=== PATIENT | male | born 1980 | race Caucasian/White ===

== ENCOUNTER 2018-05-07 10:08 | Day surgery (SDC) | payer BC ==
--- NOTE | 2018-05-07 10:16 | Emergency Department Record ---
History of Present Illness - General Chief Complaint: Abdominal Pain Stated Complaint: RIGHT UPPER ABD PAIN Time Seen by Provider: 05/07/18 10:15 Source: Patient Mode of Arrival: Ambulatory Limitations: No limitations - History of Present Illness Initial Comments: The patient is here due to developing RUQ AP about 6 hours ago while in bed sleeping. It is a constant aching pain associated with nausea but no vomiting. He denies any lower AP, back pain, fever, or dysuria. The patient states he does have a hx of a bile duct stent placed 8 years ago in [place]. Complaint: Abdominal pain Onset/Timin -: Hour(s) Location: RUQ Radiation: None Migration to: No migration Severity: Moderate Severity scale (1-10): 7 Quality: Aching Consistency: Constant Improves With: Nothing Worsens With: Nothing Associated Symptoms: Nausea - Related Data Allergies Allergy/AdvReac Type Severity Reaction Status Date / Time No Known Drug Allergies Allergy Verified 05/07/18 10:16 Travel Screening - Travel/Exposure Within Last 30 Days Have you traveled within the last 30 days?: No Review of Systems Constitutional: Denies: Chills, Fever Eyes: Denies: Eye discharge ENT: Denies: Congestion Respiratory: Denies: Cough, Dyspnea Cardiovascular: Denies: Arrhythmia, Chest pain Endocrine: Denies: Fatigue Gastrointestinal: Reports: Abdominal pain, Nausea. Denies: Diarrhea, Vomiting Genitourinary: Denies: Dysuria Musculoskeletal: Denies: Arthralgia Skin: Denies: Bruising Past Medical History - SOCIAL HISTORY Smoking Status: Never smoker Alcohol Use: None Drug Use: None - RESPIRATORY Hx Respiratory Disorders: No - CARDIOVASCULAR Hx Cardio Disorders: No - NEURO Hx Neuro Disorders: No - GI Hx GI Disorders: Yes Hx Abdominal Pain: Yes (blocked duct in gall bladder 8 years ago) - Hx Genitourinary Disorders: No - ENDOCRINE Hx Endocrine Disorders: No - MUSCULOSKELETAL Hx Musculoskeletal Disorders: No - PSYCH Hx Psych Problems: No - HEMATOLOGY/ONCOLOGY Hx Hematology/Oncology Disorders: No Family Medical History Any Significant Family History?: No Physical Exam - General General Appearance: Alert, Oriented x3, Cooperative, No acute distress - Head Head exam: Atraumatic, Normocephalic, Normal inspection - Eye Eye exam: Normal appearance, PERRL - ENT Throat exam: Normal inspection. negative: Tonsillar erythema, Tonsillar exudate - Neck Neck exam: Normal inspection, Full ROM. negative: Tenderness - Respiratory Respiratory exam: Normal lung sounds bilaterally. negative: Respiratory distress - Cardiovascular Cardiovascular Exam: Regular rate, Normal rhythm, Normal heart sounds - GI/Abdominal GI/Abdominal exam: Soft, Normal bowel sounds, Tenderness (There is mild to moderate RUQ tenderness to palption.). negative: Guarding, Organomegaly, Pulsatile mass, Rebound, Rigid - Extremities Extremities exam: Normal inspection, Full ROM, Normal capillary refill. negative: Tenderness - Neurological Neurological exam: Alert, Normal gait. negative: Abnormal gait, Motor sensory deficit - Psychiatric Psychiatric exam: negative: Anxious - Skin Skin exam: Pallor Course Vital Signs 05/07/18 10:12 Temperature 97.6 F Pulse Rate 68 Respiratory 20 Rate Blood Pressure 158/124 Pulse Ox 100 - Reevaluation(s) Reevaluation #1: The patient is doing OK at this time. His pain is improved but he is still mildly uncomfortable. We are waiting on the US report. 05/07/18 12:00 Reevaluation #2: The patient is doing a lot better at this time. I did discuss the US results and the need to have the GB removed. I did discuss the case with Dr. Farrar and he does agree to the plan to take the person to surgery here at [facility]. 05/07/18 13:49 Medical Decision Making - Data Complexity MDM Data: Labs Ordered and/or Reviewed, X-Ray Ordered and/or Reviewed - Lab Data Result diagrams: 05/07/18 10:25 05/07/18 10:25 - Radiology Data Radiology results: Report reviewed (Abd US: gallstones with wall edema with a postive Swan's sign.) Disposition Disposition: Admit Clinical Impression: Acute cholecystitis Disposition: Still a Patient at [facility] Decision to Admit: Admit from ER Decision to Admit Date: 05/07/18 Decision to Admit Time: 13:53 Accepting Physician: Charan Time Discussed w/Accepting Physician: 13:53 Condition: (1) Good Time of Disposition: 13:53 Quality - Quality Measures Quality Measures: N/A - Blood Pressure Screening View Details: Yes Does Patient Have Any of the Following: No Blood Pressure Classification: Hypertensive Reading Systolic Measurement: 158 Diastolic Measurement: 124 Screening for High Blood Pressure: < First Hypertensive BP, F/U Documented > [ [id number]] First Hypertensive Follow-up Interventions: Referral to alternative/primary care provider.
[2018-05-07] MEDS ORDERED: SODIUM CHLORIDE 0.9% 500 ML IV ONE (10:21)
[2018-05-07] MEDS ORDERED: ONDANSETRON HCL IV 4 MG/2 ML VIAL IV ONE (10:21)
[2018-05-07] MEDS ORDERED: ACETAMINOPHEN 1,000 MG/100 ML BTL IVPB ONE (10:27)
[2018-05-07 10:37] LABS: BASO % 0.8 % (0-6); EOS % 6.9 % (0-6); GRAN % 64.4 % (47-80); HEMATOCRIT 43.6 % (42.0-52.0); HEMOGLOBIN 13.6 gm/dl (14.0-18.0); LYMPH % 22.1 % (16-45); MEAN CELL VOLUME 76.2 fl (81-97); MEAN CORPUSCULAR HGB CONC 31.2 g/dl (32-36); MEAN PLATELET VOLUME 11.1 fl (7.4-10.4); MONO % 5.8 % (0-9); PLATELET COUNT 311 K/uL (130-400); RED BLOOD COUNT 5.72 M/uL (4.40-5.70); RED CELL DISTRIBUTION WIDTH 14.8 % (11.5-14.5); WHITE BLOOD COUNT W/O DIFF 12.3 K/uL (4.2-12.2)
[2018-05-07 10:42] LABS: MEAN CORPUSCULAR HEMOGLOBIN 23.7 pg (27-33)
[2018-05-07 10:50] LABS: BLOOD UREA NITROGEN 11 mg/dL (6-20); EST GLOMERULAR FILTRATION RATE > 60 mL/min
[2018-05-07 10:51] LABS: TOTAL PROTEIN 7.7 g/dL (6.6-8.7)
[2018-05-07 10:53] LABS: GLUCOSE,RANDOM 129 mg/dL (74-109)
[2018-05-07 10:55] LABS: ALT/SGPT 33 U/L (<41); AST/SGOT 27 U/L (10.0-50.0)
[2018-05-07 10:56] LABS: ALBUMIN 4.7 g/dL (4.0-5.0); BILIRUBIN,DIRECT < 0.2 mg/dL (0-0.3); LIPASE 19 U/L (13-60)
[2018-05-07 11:52] LABS: ALKALINE PHOSPHATASE 49 U/L (40-129)
[2018-05-07] MEDS ORDERED: KETOROLAC 30 MG/ML VIAL IVP ONE ×2 (12:38→14:13)
[2018-05-07 12:45] LABS: URINE APPEARANCE CLEAR; URINE BILIRUBIN NEGATIVE (NEGATIVE); URINE BLOOD NEGATIVE (NEGATIVE); URINE COLOR YELLOW; URINE GLUCOSE (UA) NEGATIVE (NEGATIVE); URINE KETONE NEGATIVE (NEGATIVE); URINE LEUKOCYTE ESTERASE NEGATIVE (NEGATIVE); URINE NITRITE NEGATIVE (NEGATIVE); URINE PROTEIN NEGATIVE (NEGATIVE); URINE UROBILINOGEN 0.2 E.U./dL (0.20 - 1.00)
[2018-05-07] MEDS ORDERED: ONDANSETRON HCL IV 4 MG/2 ML VIAL IVP ONE ×2 (13:45→14:13)
[2018-05-07] MEDS ORDERED: HYDROMORPHONE HCL 2 MG/ML VIAL IVP ONE (13:45)
[2018-05-07] MEDS ORDERED: CEFOTETAN DISODIUM 1 G in 0.9 % SODIUM CHLORIDE 100ML 100 ML IVPB SCH (13:45)
[2018-05-07] MEDS ORDERED: BUPIVACAINE 0.25% W/EPI MPF 30ML VIAL IVP ONE (14:13)
[2018-05-07] MEDS ORDERED: SUGAMMADEX SODIUM 200 MG/2 ML VIAL IV ONE (14:13)
[2018-05-07] MEDS ORDERED: LABETALOL HCL 5MG/ML, 20ML VIAL IV ONE (14:13)
[2018-05-07] MEDS ORDERED: DEXAMETHASONE 4 MG/ML 1ML VIAL IVP ONE (14:13)
[2018-05-07] MEDS ORDERED: LIDOCAINE 2% MDV (20MG/ML) 20ML VIAL IV ONE (14:13)
[2018-05-07] MEDS ORDERED: ROCURONIUM BROMIDE 50MG/5ML VIAL IV ONE (14:13)
[2018-05-07] MEDS ORDERED: SEVOFLURANE 250 ML INH ONE (14:13)
[2018-05-07] MEDS ORDERED: KETAMINE HCL 100MG/1ML VIAL INJ ONE (14:13)
[2018-05-07] MEDS ORDERED: MIDAZOLAM HCL 2MG/2ML VIAL IV ONE (14:13)
[2018-05-07] MEDS ORDERED: PROPOFOL 10 MG/ML VIAL IV ONE (14:13)
--- NOTE | 2018-05-08 10:50 | History and Physical Report ---
DATE: 05/07/2018 PREOPERATIVE DIAGNOSIS: Acute cholecystitis. CHIEF COMPLAINT: The patient is a 38-year-old male who has had about a 12-hour history of abdominal pain. This was in his epigastric region and did settle in his right upper quadrant. He said he had a similar episode in 2009 for which he was hospitalized in [place] and underwent ERCP with stent placement. They felt that he had either sludge or choledocholithiasis. For whatever reason, he never pursued cholecystectomy. PAST MEDICAL HISTORY: Asthma. PAST SURGICAL HISTORY: Left hand repair. CURRENT MEDICATIONS: QVAR. ALLERGIES: No known medical allergies. SOCIAL HISTORY: Denies tobacco or alcohol usage. PHYSICAL EXAMINATION: VITAL SIGNS: Stable. He is afebrile. HEART: Regular. LUNGS: Clear. ABDOMEN: Soft. There is fairly significant right upper quadrant tenderness. There is some rebound. EXTREMITIES: No trace of edema. LABORATORY DATA: I did review his laboratory values. He has mild leukocytosis at 12,000. His liver functions are normal. RADIOGRAPHIC DATA: Ultrasound was done which did show findings consistent with thickened gallbladder wall with pericholecystic fluid. Positive Swan sign consistent with cholecystitis. IMPRESSION: Acute cholecystitis. PLAN: We did discuss cholecystectomy versus medical management. He desired surgical intervention. Risks include bleeding, infection, ductal injury, possible conversion to open, postoperative bile leak. He understands this fully. This will be scheduled today. Thank you for this referral. CC: Saeid Land MD [facility] HOSPITALFernandez
--- NOTE | 2018-05-08 10:50 | Operative Note ---
DATE OF SURGERY: 05/07/2018 Surgeon: Franc Farrar DO PREOPERATIVE DIAGNOSIS: Acute cholecystitis. POSTOPERATIVE DIAGNOSES: 1. Acute cholecystitis. 2. Gallbladder hydrops. OPERATION: Laparoscopic cholecystectomy. Indication: The patient is a 38-year-old male who presented to the ER with right upper quadrant pain. He apparently had had choledocholithiasis with ERCP and stent placement many, many years ago. We did discuss cholecystectomy. Risks, benefits, and alternatives were discussed. Risks include bleeding, infection, ductal injury, possible conversion to open, postoperative bile leak. He understood this fully. PROCEDURE: Thereafter, consent was signed and questions answered. He was taken to the operating room and placed in a supine position. General anesthesia was administered per the department of anesthesia. The patient's abdomen was shaved of hair and prepped and draped in the usual sterile fashion. Adequate timeout was performed. He did receive preoperative antibiotic as well as DVT prophylaxis. The infraumbilical region was anesthetized with a total of 5 mL of 0.25% Sensorcaine with epinephrine. A 2.5 cm infraumbilical incision was made. This was carried down to the anterior rectus fascia. This was incised. Terry clamps were placed on the fascial edges and brought up into the wound. Stay sutures of 0 Vicryl were placed. Posterior rectus sheath was identified and incised. The peritoneal cavity was entered bluntly. At this time, a 10 mm blunt Cody port was placed. Adequate pneumoperitoneum was established. Under direct visualization, additional 5 mm epigastric and two 5 mm right subcostal ports were placed. The gallbladder was identified. It was very distended and tense. Therefore, this was decompressed with a Biermann needle of about 80 mL of clear bile consistent with gallbladder hydrops. The gallbladder was retracted in a cephalad and lateral direction. The omentum was caked to the anterior aspect. This was taken off bluntly. The hepatocystic triangle was then thoroughly dissected out. The distal half of the gallbladder was released from the cystic plate elongating our retroductal window. The cystic duct and cystic artery were clearly identified. Each one was circumferentially dissected free. The cystic artery was taken down with the Jamil harmonic. The cystic duct was triply clipped and cut in a standard fashion. The gallbladder essentially peeled off the liver bed secondary to the inflammatory nature. This was placed in an EndoCatch bag and brought out through the umbilical port. Right upper quadrant was rechecked. It was irrigated with approximately 1500 mL of sterile saline. There were a few bleeding points in the liver bed which were cauterized as well as application of FloSeal. There was no bleeding. No bile leaking. No bowel injury noted. The patient was leveled out. The pneumoperitoneum was released. All ports were removed. The fascia was closed with 0 Vicryl in a [id number] fashion. The skin at all ports was closed with 4-0 Vicryl. The patient was taken to the recovery room in satisfactory condition. FINDINGS AT THE TIME OF SURGERY: Acute cholecystitis with gallbladder hydrops. CC: MD DARREL Chandra
--- NOTE | 2018-05-08 14:22 | ULTRASOUND REPORT ---
EXAM: EMERGENCY COMPLETE ABDOMEN ULTRASOUND HISTORY: RIGHT UPPER QUADRANT ABDOMINAL PAIN. TECHNIQUE: Complete real-time ultrasound examination of the abdomen was obtained. Comparison: None. FINDINGS: The visualized abdominal aorta appeared negative with no aneurysm seen, although the upper most aspect of the abdominal aorta was obscured by overlying bowel content. The IVC was negative as seen. The liver has a somewhat coarsened echogenicity which may represent some diffuse fatty infiltration of the liver or other diffuse hepatic parenchymal disease. No intrahepatic biliary dilatation seen. The right kidney measures 10.1 cm in length with no hydronephrosis evident. Numerous echogenic foci are seen in the gallbladder demonstrating shadowing and movement consistent with cholelithiasis. The bankruptcy law specialist indicates a positive sonographic Swan's sign as well. Mild diffuse prominent of the gallbladder wall and some hazy density in the adjacent liver may represent some edema. Clinical correlation as to acute cholecystitis identified. The left kidney measures about 10.5 cm in length with no hydronephrosis evident. The spleen was negative as seen. The common duct is normal in caliber. The pancreas is relatively poorly seen due to overlying bowel content. IMPRESSION: 1. CHOLELITHIASIS WITH SOME MILD DIFFUSE PROMINENCE OF THE GALLBLADDER WALL AND POSSIBLY SOME EDEMA IN THE ADJACENT LIVER. POSITIVE SONOGRAPHIC SWAN'S SIGN WELL. CLINICAL CORRELATION TO ACUTE CHOLECYSTITIS SUGGESTED. 2. NO BILIARY DILATATION IDENTIFIED. 3. COARSENED ECHOGENICITY OF THE LIVER SUGGESTING SOME DIFFUSE FATTY INFILTRATION OF THE LIVER OR OTHER DIFFUSE HEPATIC PARENCHYMAL DISEASE. 4. NO HYDRONEPHROSIS IN EITHER KIDNEY. JOB NUMBER: [id number] MTDD
== END 2018-05-07 16:25 | disposition home or self-care (01) ==
LOC: ER 10:08 → SUR 14:12
PROVIDERS: ATTEND Surgery
DX: K81.0 Acute cholecystitis (principal); R11.0 Nausea; J45.909 Unspecified asthma, uncomplicated; Z87.19 Personal history of other diseases of the digestive system; Z96.89 Presence of other specified functional implants; K82.1 Hydrops of gallbladder
CPT/HCPCS: 47562; 00790; 99285 ×2; 96376; 96365; 96375; 83690; 85025; 80076; 80048; 81003; 76700; J1885; J2405; J1170; J3490